=== PATIENT | female | born 2000 | race African-American/Black ===

== ENCOUNTER 2020-02-06 11:41 | Emergency (ER) | payer BC, SELFPAY ==
[2020-02-06 11:47] VITALS: BP 119/68; PULSE 77; RESP 16; TEMP 36.6; O2SAT 100
--- NOTE | 2020-02-06 12:07 | ED.FEMALEGU ---
HPI - Female Genitourinary General Chief complaint: Urogenital-Female Stated complaint: n/v, chills, vaginal pain Time Seen by Provider: 02/06/20 12:07 History of Present Illness HPI Narrative: Pain and swelling on the right side of the vagina for the past few days. She has a small amount of vaginal discharge, which she says is chronic. No abdominal pain, nausea, vomiting. Related Data Allergies Allergy/AdvReac Type Severity Reaction Status Date / Time No Known Allergies Allergy Verified 02/06/20 12:04 Review of Systems Review of Systems: All systems reviewed & are unremarkable except as noted in HPI and below Constitutional: Constitutional: Denies chills Cardiovascular: Cardiovascular: Denies chest pain Respiratory: Respiratory: Denies dyspnea Gastrointestinal: Gastrointestinal: Denies abdominal pain, Reports nausea and Reports vomiting Genitourinary: Genitourinary: Denies abnormal vaginal bleeding, Reports genital lesions, Reports dysuria, Reports pelvic pain, Denies flank pain and Reports vaginal discharge Neurologic: Denies weakness PMFSH Social History Social History Gender identity (if verbalized by the patient): Female Exam Const: General: healthy appearing, no acute distress and alert Orientation/consciousness: patient oriented x3 HENMT: Head: normal to inspection Resp: Effort & Inspection: normal respiratory effort Auscultation: clear to auscultation bilaterally Cardio: Rate: regular rate Rhythm: regular rhythm GI: GI Palp: Yes Soft to palpation and No Tenderness to palpation present (GI) : External Female Exam: normal external appearance Other: small ulceration over right bartholin gland which is extremely tender. Milky foul smelling vaginal discharge. Skin: General skin exam: normal color Neuro: General: patient oriented x3, moves all extremities and CN's II-XI intact bilaterally Speech: normal speech Gait exam (Neuro): Normal gait present Course Vital Signs Vital signs: Vital Signs Temperature 36.6 C 02/06/20 11:47 Pulse Rate 77 02/06/20 11:47 Respiratory Rate 16 02/06/20 11:47 Blood Pressure 119/68 02/06/20 11:47 Pulse Oximetry 100 02/06/20 11:47 Temperature 36.6 C 02/06/20 11:47 Pulse Rate 82 02/06/20 13:56 Respiratory Rate 17 02/06/20 13:56 Blood Pressure 118/76 02/06/20 13:56 Pulse Oximetry 97 02/06/20 13:56 MDM - Female Genitourinary MDM Narrative Medical decision making narrative: I suspect that she had a bartholin gland cyst that drained spontaneously. Can't rule out herpectic lesion. Exam also concerning for other STD. Will test and treat empirically. Medical Records Attestation: I reviewed the patient's medical records. Lab Data Attestation: I reviewed the patient's lab results. Labs: Lab Results 02/06/20 02/06/20 02/06/20 Range/Units 12:40 12:45 12:52 Urine Color Yellow (Yellow) Urine Appearance Cloudy H (Clear) Urine pH 8.0 (5.0-9.0) Ur Specific [place] 1.023 (1.001-1.035) Urine Protein 2+ H (Negative) mg/dL Urine Glucose (UA) Negative (Negative) mg/dL Urine Ketones Trace (Negative) mg/dL Ur Blood (Man) Negative (Negative) Urine Nitrate Negative (Negative) Urine Bilirubin Negative (Negative) Urine Urobilinogen Negative (<2.0) mg/dL Leukocyte Esterase Rfl 1+ H (Negative) VIMAL/UL Urine RBC 0-2 (0-2) /hpf Urine WBC 10-15 H /hpf Ur Squamous Epith Cells Many H (Few) /hpf Ur Transition Epith Cell Rare (None Seen) /hpf Urine Mucus Few H /lpf C.trachomatis RNA (TMA) Pending Herpes Simplex Culture Pending N.gonorrhoeae RNA (TMA) Pending Trichomonas Direct ID Negative (Negative) UCG Bedside Result Negative Reference Range: Negative Discharge Plan Discharge Clinical Impression: Cervicitis Patient Disposition: Home, Self-C
[2020-02-06 13:08] LABS: Add Urine Microscopic? YES; Appearance Urine Cloudy (Clear); Bilirubin Urine Negative (Negative); Color Urine Yellow (Yellow); Glucose Urine UA Negative (Negative); Ketones Urine Trace mg/dL (Negative); Leukocyte Esterase Ur 1+ LEU/UL (Negative); Mucus Urine Few /lpf; Nitrate Urine Negative (Negative); Protein Urine 2+ mg/dL (Negative); RBC Urine 0-2 /hpf (0-2); Specific Grav Ur 1.023 (1.001-1.035); Squamous Epithelial Cell Urine Many /hpf (Few); Transitional Epi Cells Urine Rare /hpf (None Seen); Urobilinogen Urine Negative mg/dL (<2.0)
[2020-02-06 13:13] LABS: Blood Urine Negative (Negative)
[2020-02-06] MEDS: cefTRIAXone 250 MG VIAL IM (13:22)
[2020-02-06] MEDS: metroNIDAZOLE 250 MG TABLET 2000 MG PO (13:22)
[2020-02-06] MEDS: valACYclovir HCL 500 MG TABLET 1000 MG PO (13:23)
[2020-02-06] MEDS: LIDOCAINE HCL 1% LOCAL INJ 20 ML VIAL (13:23)
[2020-02-06] MEDS: AZITHROMYCIN 250 MG TABLET 1000 MG PO (13:23)
[2020-02-06 13:56] VITALS: BP 118/76; PULSE 82; RESP 17; O2SAT 97
== END 2020-02-06 14:05 | disposition home or self-care (01) ==
PROVIDERS: Emergency Medicine Emergency Medical Services; Emergency Provider Emergency Medicine
DX: N72 Inflammatory disease of cervix uteri (principal)
CPT/HCPCS: 81001; 81025; 87070; 87077; 87086; 87088; 87140; 87255; 87491; 87591; 87808; 96372; 99284; A9270; J0696

== ENCOUNTER 2023-04-19 02:11 | Observation (INO) | payer BC, SELFPAY ==
--- NOTE | 2023-04-19 02:11 | OBADM ---
This patient, Gucci Treviño, admitted to the OB room [facility] for observation. Patient/family oriented to hospital policies and general routines including ID bracelet, bed and alarms, visiting hours, pain management, procedures, bathroom and other care routines, personal items, smoking policy, room service/diet, and visiting hours. Patient/Family are encouraged to report perceived risks to care and to ask questions if they do not understand what they are told or what they should do.
[2023-04-19 02:35] VITALS: TEMP 36.6
[2023-04-19 02:40] VITALS: BMI 24.5
[2023-04-19 03:35] LABS: Appearance Urine Cloudy (Clear); Bacteria Urine Rare /hpf; Bilirubin Urine Negative (Negative); Blood Urine Negative (Negative); Color Urine Yellow (Yellow); Glucose Urine UA Negative (Negative); Ketones Urine Negative (Negative); Leukocyte Esterase Ur 1+ LEU/UL (NEGATIVE); Nitrate Urine Negative (Negative); Non Pathogenic Casts 0-2; Protein Urine Negative (Negative); RBC Urine 0-2 /hpf (0-2); Specific Grav Ur 1.008 (1.001-1.035); Squamous Epithelial Cell Urine Moderate /hpf (Few); Urobilinogen Urine 0.2 mg/dL (<2.0); pH Urine 6.5 (5.0-9.0)
[2023-04-19 03:54] LABS: Add Urine Microscopic? YES
[2023-04-19] MEDS: NITROFURANTOIN MONOHYD MACROCR 100 MG CAP PO (04:20)
--- NOTE | 2023-04-21 11:57 | P.PNOB_ITS ---
OB - Triage/Final Diagnosis Visit Information Date of evaluation: 04/19/23 Reason for evaluation: threatened labor Comments/Additional reasons for admission: I have assessed the risk for this patient, Gucci Treviño, and determined that she would benefit from observation care. Evaluation Laboratory results: Laboratory Tests 04/19/23 03:09 Urine Color Yellow Urine Appearance Cloudy H Urine pH 6.5 Ur Specific [place] 1.008 Urine Protein Negative Urine Glucose (UA) Negative Urine Ketones Negative Ur Blood (Man) Negative Urine Nitrate Negative Urine Bilirubin Negative Urine Urobilinogen 0.2 Ur Leukocyte Esterase 1+ H Urine RBC 0-2 Urine WBC 11-20 H Ur Squamous Epith Cells Moderate Urine Bacteria Rare Urine Casts 0-2
== END 2023-04-19 04:25 | disposition home or self-care (01) ==
PROVIDERS: Advanced Practice Midwife; Admitting Provider Obstetrics & Gynecology; Visit Provider Obstetrics & Gynecology
DX: O47.02 False labor before 37 completed weeks of gestation, second trimester (principal); O26.892 Other specified pregnancy related conditions, second trimester; R10.9 Unspecified abdominal pain; Z3A.22 22 weeks gestation of pregnancy
CPT/HCPCS: 81001; 87086; 87088; A9270; G0378; G0379